=== PATIENT | male | born 1935 | race Caucasian/White ===

== ENCOUNTER 2017-11-27 10:18 | Inpatient (IN) | payer OTHER, BC ==
[~2017-11-27] VITALS: Ht 167.6 cm; Wt 63.0 kg
[~2017-11-27 10:18] MED LIST: ASPIR-LOW81 MG PO; Aspirin E.C. PO; CALTRATE 600 +1 EAC1 PO; FENTANYL1 EAC4 TD; FENTANYL1 EAC5 TD; FLEXERIL10 MG PO; GABAPENTIN PO; GINKGO BILOBA120 MG PO; MAG-OXIDE400 MG PO; METFORMIN HCL500 MG PO; MULTIPLE VITAM1 EACH PO; PERCOCET 5/31 TABLET PO; POTASSIUM GLUCO2 MEQ PO; PRAVASTATIN SOD10 MG PO; SYNTHROID100 MCG PO; VITAMIN D31000 UNIT PO
[2017-11-27 12:27] LABS: BASOPHIL (%) 0.6 % (0-1); EOSINOPHIL (%) 1.7 % (0-5); EOSINOPHIL COUNT 0.1 K/uL (0-0.3); HEMOGLOBIN 12.1 G/DL (12.5-16.6); IMMATURE GRANULOCYTE (%) 0.4 % (0.0-0.7); LYMPHOCYTE (%) 23.2 % (15-42); LYMPHOCYTE COUNT 1.7 K/uL (1.0-2.8); MCH 31.3 PG (29.0-34.0); MCHC 32.7 G/DL (30.0-36.0); MCV 95.6 FL (86-99); MONOCYTE (%) 9.6 % (3-12); MONOCYTE COUNT 0.7 K/uL (0-0.8); NEUTROPHIL (%) 64.5 % (45-76); NEUTROPHIL COUNT 4.6 K/uL (1.8-6.4); PLATELET COUNT 165 K/uL (156-360); RBC DIS.WIDTH-CV 13.2 % (11.8-14.6); RBC DIS.WIDTH-SD 46.8 % (39-53); RED BLOOD COUNT 3.87 M/uL (4.00-5.50); WHITE BLOOD COUNT 7.1 K/uL (4.1-10.2)
[2017-11-27 12:37] LABS: CHLORIDE 102 mEq/L (99-109); SODIUM 141 mEq/L (136-147)
[2017-11-27 12:38] LABS: APPEARANCE SL.HAZY ((CLEAR)); BILIRUBIN NEGATIVE; BLOOD NEGATIVE; COLOR YELLOW ((YELLOW)); GLUCOSE (STRIP) NEGATIVE; KETONES NEGATIVE; LEUKOCYTES NEGATIVE; NITRITE NEGATIVE; PROTEIN (STRIP) NEGATIVE; SPECIFIC GRAVITY 1.019 (1.000-1.030)
[2017-11-27 12:39] LABS: GLUCOSE 134 mg/dL (70-99)
[2017-11-27 12:39] LABS: BACTERIA RARE /HPF; EPITHELIAL CELLS NONE SEEN /HPF; MUCUS NONE SEEN /LPF; RED BLOOD CELLS 0-5 /HPF (0-5); UCUL ADDED? NO; WHITE BLOOD CELLS 0-5 /HPF (0-5)
[2017-11-27 12:42] LABS: CREATININE 1.1 mg/dL (0.6-1.3); GFR ESTIMATE (CALCULATED) > 59 mL/min/ (58.99-99999)
[2017-11-27 12:43] LABS: UREA NITROGEN (BUN) 27 mg/dL (9-23)
[2017-11-27 13:01] LABS: TROP-I INTERPRETATION NEGATIVE; TROPONIN-I < 0.01 ng/mL (0.0-0.30)
[2017-11-27] MEDS ORDERED: LO-DOSE ASPIRIN81 M2 PO (14:24)
[2017-11-27] MEDS ORDERED: VITAMIN B-625 MG PO (14:28)
[2017-11-27] MEDS ORDERED: OMEPRAZOLE40 M1 PO (14:32)
[2017-11-27] MEDS ORDERED: EXTRA STRENGTH500 M1 PO (14:35)
[2017-11-27] MEDS ORDERED: ULTRAM50 MG PO (14:36)
[2017-11-27] MEDS ORDERED: VITRON-C TABLE1 EACH PO (14:39)
[2017-11-27 15:28] LABS: HDL CHOLESTEROL 50 MG/DL (Desirable>=40); LDL CHOLESTEROL 65 mg/dL (Desirable<100); NON-HDL CHOLESTEROL 78 mg/dL (Desirable<160); TOTAL CHOLESTEROL 128 mg/dL (Desirable<200); TRIGLYCERIDES 63 MG/DL (Normal: <150)
[2017-11-27 17:30] VITALS: BP 178/77
[2017-11-27 19:40] VITALS: BP 121/58
[2017-11-27 23:15] VITALS: BP 171/73
[2017-11-28 04:28] VITALS: BP 119/56
[2017-11-28 04:38] LABS: BASOPHIL (%) 0.6 % (0-1); EOSINOPHIL (%) 2.2 % (0-5); EOSINOPHIL COUNT 0.1 K/uL (0-0.3); HEMATOCRIT 36.1 % (38.0-50.0); HEMOGLOBIN 12.2 G/DL (12.5-16.6); IMMATURE GRANULOCYTE (%) 0.2 % (0.0-0.7); LYMPHOCYTE COUNT 1.7 K/uL (1.0-2.8); MCH 31.3 PG (29.0-34.0); MCHC 33.8 G/DL (30.0-36.0); MCV 92.6 FL (86-99); MONOCYTE (%) 10.1 % (3-12); MONOCYTE COUNT 0.6 K/uL (0-0.8); NEUTROPHIL (%) 60.9 % (45-76); NEUTROPHIL COUNT 3.9 K/uL (1.8-6.4); PLATELET COUNT 153 K/uL (156-360); RBC DIS.WIDTH-SD 44.1 % (39-53); WHITE BLOOD COUNT 6.3 K/uL (4.1-10.2)
[2017-11-28 05:02] LABS: ALBUMIN 3.7 g/dL (3.2-4.8); CHLORIDE 104 mEq/L (99-109); SODIUM 141 mEq/L (136-147)
[2017-11-28 05:04] LABS: GLUCOSE 140 mg/dL (70-99)
[2017-11-28 05:05] LABS: TOTAL PROTEIN 5.8 g/dL (6.4-8.3)
[2017-11-28 05:06] LABS: TOTAL BILIRUBIN 0.8 mg/dL (0.0-1.0)
[2017-11-28 05:08] LABS: ALKALINE PHOSPHATASE 79 IU/L (3-129); GFR ESTIMATE (CALCULATED) > 59 mL/min/ (58.99-99999)
[2017-11-28 05:09] LABS: UREA NITROGEN (BUN) 24 mg/dL (9-23)
[2017-11-28 05:10] LABS: AST (GOT) 18 IU/L (2-34)
[2017-11-28 05:11] LABS: ALT (GPT) 15 IU/L (3-49)
[2017-11-28 07:20] VITALS: BP 135/62
[2017-11-28 11:29] VITALS: BP 137/62
[2017-11-28 16:24] VITALS: BP 127/59
[2017-11-28 19:25] VITALS: BP 115/52
[2017-11-28 23:08] VITALS: BP 105/50
[2017-11-29 03:46] VITALS: BP 112/56
[2017-11-29 07:11] VITALS: BP 122/85
[2017-11-29 09:03] LABS: HEMOGLOBIN A1c (GLYCOHEMOGLOB) 6.4 % (Below 5.7)
[2017-11-29 11:27] VITALS: BP 98/52
[2017-11-29 15:24] VITALS: BP 109/55
[2017-11-29 19:51] VITALS: BP 118/57
[2017-11-29 23:48] VITALS: BP 126/61
[2017-11-30 03:21] VITALS: BP 130/74
[2017-11-30 08:49] VITALS: BP 109/51
[2017-11-30 11:43] VITALS: BP 118/55
[2017-11-30] MEDS ORDERED: PROTONIX40 MG PO (15:25)
[2017-11-30] MEDS ORDERED: NOVOLOG 10100 UNITS/ SC (15:27)
[2017-11-30] MEDS ORDERED: CALCIUM 500 +1 EAC2 PO (15:29)
[2017-11-30] MEDS ORDERED: STOOL SOFTENER100 M1 PO (15:30)
[2017-11-30] MEDS ORDERED: TYLENOL REGULA325 MG PO (15:31)
== END 2017-11-30 13:36 | DRG 64 ==
LOC: EME 10:18 → EDOF 14:04 → 4EAST 14:04 → ENRESERV 14:08 → 4EAST 17:21
PROVIDERS: Emergency Medicine; Hospitalist
DX: I61.8 Other nontraumatic intracerebral hemorrhage (principal); R32 Unspecified urinary incontinence; E86.0 Dehydration; E03.9 Hypothyroidism, unspecified; G93.6 Cerebral edema; E78.5 Hyperlipidemia, unspecified; E11.9 Type 2 diabetes mellitus without complications; G89.29 Other chronic pain; M54.5 Low back pain; Z90.49 Acquired absence of other specified parts of digestive tract; Z88.6 Allergy status to analgesic agent
CPT/HCPCS: 70450; 70551; 71046; 72100; 80048; 80053; 80061; 81003; 82948; 83036; 84443; 84484; 85025; 93005; 93306; 93880; 97530 GO; 97530 GP; 99281; 99285; J1815; J2405

== ENCOUNTER 2017-11-30 10:49 | Inpatient (IN) | payer OTHER, BC ==
[~2017-11-30] VITALS: Ht 167.6 cm; Wt 62.8 kg
[~2017-11-30 10:49] MED LIST changes: +EXTRA STRENGTH500 M1 PO; +LO-DOSE ASPIRIN81 M2 PO; +OMEPRAZOLE40 M1 PO; +ULTRAM50 MG PO; +VITAMIN B-625 MG PO; +VITRON-C TABLE1 EACH PO
[2017-11-30 14:06] VITALS: BP 124/58
[2017-11-30] MEDS ORDERED: PROTONIX40 MG PO (15:25)
[2017-11-30] MEDS ORDERED: NOVOLOG 10100 UNITS/ SC (15:27)
[2017-11-30] MEDS ORDERED: CALCIUM 500 +1 EAC2 PO (15:29)
[2017-11-30] MEDS ORDERED: STOOL SOFTENER100 M1 PO (15:30)
[2017-11-30] MEDS ORDERED: TYLENOL REGULA325 MG PO (15:31)
[2017-12-01 00:05] VITALS: BP 134/64
[2017-12-01 05:05] VITALS: BP 129/60
[2017-12-01 06:50] LABS: HEMATOCRIT 41.3 % (38.0-50.0); HEMOGLOBIN 13.4 G/DL (12.5-16.6); MCH 30.4 PG (29.0-34.0); MCHC 32.4 G/DL (30.0-36.0); MCV 93.7 FL (86-99); RBC DIS.WIDTH-CV 13.3 % (11.8-14.6); RED BLOOD COUNT 4.41 M/uL (4.00-5.50); WHITE BLOOD COUNT 8.9 K/uL (4.1-10.2)
[2017-12-01 07:07] LABS: PLATELET COUNT 209 K/uL (156-360)
[2017-12-01 07:12] LABS: ALBUMIN 4.2 G/DL (3.2-4.8); ALKALINE PHOSPHATASE 74 IU/L (3-129); ALT (GPT) 21 IU/L (3-49); AST (GOT) 19 IU/L (2-34); CHLORIDE 101 MEQ/L (99-109); CREATININE 0.9 MG/DL (0.6-1.3); GFR ESTIMATE (CALCULATED) > 59 mL/min/ (58.99-99999); GLUCOSE 136 mg/dL (70-99); POTASSIUM 4.6 MEQ/L (3.7-5.4); SODIUM 140 MEQ/L (136-147); TOTAL BILIRUBIN 0.9 MG/DL (0.0-1.0); TOTAL PROTEIN 6.8 G/DL (6.4-8.3); UREA NITROGEN (BUN) 23 mg/dL (9-23)
[2017-12-01 14:04] VITALS: BP 118/58
[2017-12-02 04:11] VITALS: BP 129/66
[2017-12-02 16:56] VITALS: BP 113/55
[2017-12-03 04:18] VITALS: BP 144/64
[2017-12-03 16:00] VITALS: BP 124/60
[2017-12-04 03:52] VITALS: BP 113/53
[2017-12-04] MEDS ORDERED: DITROPAN5 MG PO (12:50)
== END 2017-12-04 15:20 | disposition home health service (06) | DRG 66 ==
LOC: 3WEST 10:49
PROVIDERS: Physical Medicine & Rehabilitation Pain Medicine
PROC: F07M0ZZ Range of Motion and Joint Mobility Treatment of Musculoskeletal System - Whole Body (ICD-10-PCS; principal; 2017-11-30)
DX: I61.8 Other nontraumatic intracerebral hemorrhage (principal); E86.0 Dehydration; D69.6 Thrombocytopenia, unspecified; E11.9 Type 2 diabetes mellitus without complications; D64.9 Anemia, unspecified; E78.5 Hyperlipidemia, unspecified; E03.9 Hypothyroidism, unspecified; R32 Unspecified urinary incontinence; N32.81 Overactive bladder; M47.816 Spondylosis without myelopathy or radiculopathy, lumbar region; M51.36 Other intervertebral disc degeneration, lumbar region; M43.6 Torticollis; M46.90 Unspecified inflammatory spondylopathy, site unspecified; M48.061 Spinal stenosis, lumbar region without neurogenic claudication; Z86.73 Personal history of transient ischemic attack (TIA), and cerebral infarction without residual deficits; Z88.6 Allergy status to analgesic agent
CPT/HCPCS: 80053; 82948; 85027; 97110 GO; 97530 GP; A6214; J1815